=== PATIENT | male | born 1985 | race Caucasian/White ===

== ENCOUNTER 2020-03-14 09:32 | Emergency (ER) | payer SELFPAY ==
[2020-03-14 09:39] VITALS: BP 124/85; PULSE 63; RESP 20; TEMP 36.7; O2SAT 100
--- NOTE | 2020-03-14 09:40 | ED.SKABFB ---
HPI - Skin/Abscess/Foreign Bdy General Chief complaint: Skin/Abscess/Foreign Body Stated complaint: wasp sting Time Seen by Provider: 03/14/20 09:40 Source: patient and RN notes reviewed Mode of arrival: ambulatory Limitations: no limitations History of Present Illness HPI narrative: 35 year old male who presents to [facility] care with complaints of wasp sting to his right ankle 2 days ago. Patient has red inflamed sting halima to the medial aspect of his right ankle with swelling noted, no drainage noted but pain and warmth also the right inner ankle. Patient works as construction electrician and states that he is having difficulty climbing ladders due to swelling and pain to his right ankle MD complaint: insect bite/sting and other (swelling and tender) Onset (ago): day(s) (2) Tetanus up to date: yes Location: R foot (medial ankle) Severity: moderate Severity scale (1-10): 5 Quality: other (throbbing) Pain Consistency: constant Relieving factors: cold therapy, rest and other (Benadryl) Exacerbating factors: movement Context: other (wasp sting) Associated symptoms: denies other symptoms Treatments prior to arrival: Benadryl Related Data Home Medications Medication Instructions Recorded Confirmed albuterol sulfate 1 inh INHALATION BID 03/14/20 03/14/20 Allergies Allergy/AdvReac Type Severity Reaction Status Date / Time No Known Allergies Allergy Mild Unverified 03/14/20 09:42 Review of Systems Review of Systems: Narrative: CONSTITUTIONAL: Denies fever, chills, or sweats. EYES: Denies visual changes, redness, or discharge. ENT: Denies rhinorrhea, congestion, sore throat, or otalgia. CARDIOVASCULAR: Denies chest pain, palpitations, or edema. RESPIRATORY: Denies cough or dyspnea. GASTROINTESTINAL: Denies abdominal pain, nausea, vomiting, or diarrhea. GENITOURINARY: Denies dysuria or hematuria. SKIN: positive for redness, swelling, puncture halima to right inner ankle from wasp sting and itching. MUSCULOSKELETAL: Denies back pain, joint pain, or myalgia. NEUROLOGIC: Denies headache, numbness, or weakness. PSYCHIATRIC: Denies anxiety or depression. All systems reviewed & are unremarkable except as noted in HPI and below PMFSH Past Medical History Medical History (Updated 03/14/20 @ 10:06 by Luz Maria L. [place], REVIEW TRAINER) Asthma Eczema Surgical History Surgical History (Updated 03/14/20 @ 09:45 by Luz Maria Ibrahim NP) H/O inguinal hernia repair History of surgery on right wrist Social History Social History (Updated 03/14/20 @ 09:45 by Luz Maria Ibrahim NP) Smoking status: Current every day smoker Tobacco type: cigarettes Alcohol intake: current Living arrangements: with family Gender identity (if verbalized by the patient): Male Comments At time of signature, agree with nursing past medical, surgical, social history. There is no relevant family history pertinent to the presenting complaint Exam Narrative: Exam Narrative: GENERAL: Well-appearing, well-nourished, and in no acute distress. HEAD: Normocephalic, atraumatic. EYES: PERRLA and EOMI. ENT: Nares clear, no rhinorrhea or epistaxis. Mucous membranes moist. NECK: Supple. CHEST: Clear to auscultation. No respiratory distress. HEART: Regular rate and rhythm. No murmur heard. Normal peripheral pulses. ABDOMEN: Soft, nontender, nondistended, normal active bowel sounds. EXTREMITIES: Normal range of motion. mild edema to inner right ankle with insect bite halima that is tender and red, no drainage noted SKIN: Warm, dry, no rash. NEURO: No focal deficits. Alert and oriented x3. Course Vital Signs Vital signs: Vital Signs Temperature 36.7 C 03/14/20 09:39 Pulse Rate 63 03/14/20 09:39 Respiratory Rate 03/14/20 09:39 Blood Pressure 124/85 03/14/20 09:39 Pulse Oximetry 100 03/14/20 09:39 Temperature 36.7 C 03/14/20 09:39 Pulse Rate 63 03/14/20 09:39 Respiratory Rate 03/14/20 09:39 Blood Pressure 124/85 03/14/20 09:39 Pulse Oxim
== END 2020-03-14 10:23 | disposition home or self-care (01) ==
PROVIDERS: Emergency Provider Registered Nurse
DX: S90.561A Insect bite (nonvenomous), right ankle, initial encounter (principal); L03.115 Cellulitis of right lower limb; W57.XXXA Bitten or stung by nonvenomous insect and other nonvenomous arthropods, initial encounter; F17.210 Nicotine dependence, cigarettes, uncomplicated; J45.909 Unspecified asthma, uncomplicated
CPT/HCPCS: 99213; G0463